=== PATIENT | female | born 1955 | race Two or more races ===

== ENCOUNTER 2018-01-11 11:15 | Emergency (ER) | payer OTHER ==
[~2018-01-11] VITALS: Ht 152.4 cm; Wt 91.6 kg
[2018-01-11] MEDS ORDERED: METFORMIN HCL1000 M1 ORAL (11:43)
[2018-01-11] MEDS ORDERED: LOSARTAN POTASS50 MG ORAL (11:43)
[2018-01-11] MEDS ORDERED: FLUOXETINE HCL10 MG ORAL (11:43)
[2018-01-11] MEDS ORDERED: LIPITOR80 MG ORAL (11:43)
[2018-01-11] MEDS ORDERED: HUMULIN R100 UNIT/1 SUBQ (11:43)
[2018-01-11] MEDS ORDERED: HYDROCHLOROTHIA25 MG ORAL (11:43)
[2018-01-11] MEDS ORDERED: ASPIRIN81 MG ORAL (11:43)
[2018-01-11] MEDS ORDERED: ROSUVASTATIN CA40 MG PO (11:43)
[2018-01-11] MEDS ORDERED: AZITHROMYCIN250 MG ORAL (11:43)
[2018-01-11] MEDS ORDERED: BENZONATATE100 MG ORAL (11:43)
--- NOTE | 2018-01-11 12:05 | Emergency Room Report ---
History of Present Illness General Chief Complaint: Upper Respiratory Illness Source: Patient Present Illness HPI 62 yo female patient presents to ER complaining of cough x2 weeks. Patient reports cough has green, purulent sputum. Reports being seen by primary care last week, given Benzonatate cough medication , denies relief of symptoms. Patient also complains of JOHNSON; reports JOHNSON began after cough symptoms. Reports taking Motrin for JOHNSON with mild relief of symptoms. Denies vision changes, vision loss, hearing loss, ear pain. Patient also reports one episode of vomiting today; denies blood in vomit; reports watery. Reports hx of HTN. Denies chest pain, SOB, fever. Denies abdominal pain, diarrhea. Patient denies loss of appetite. Denies syncope, LOC. Allergies: Coded Allergies: PENICILLINS (Verified Allergy, Unknown, 01/11/18) Patient History Past Medical History: see triage record Last Menstrual Period: Post Reviewed Nursing Documentation: PMH: Agreed, PSxH: Agreed Nursing Documentation-PMH Hx Hypertension: Yes Hx Diabetes: Yes Review of Systems All Other Systems: negative except mentioned in HPI Physical Exam Vital Signs Date Time Temp Pulse Resp B/P (MAP) Pulse Ox O2 Delivery O2 Flow Rate FiO2 01/11/18 11:34 97.7 75 19 153/78 95 Room Air 97.7 Sp02 EP Interpretation: reviewed, normal General Appearance: well appearing, no apparent distress, alert, GCS 15, non- toxic Head: normocephalic, atraumatic Eyes: bilateral eye normal inspection, bilateral eye PERRL, bilateral eye EOMI ENT: hearing grossly normal, normal pharynx, normal voice, TMs + canals normal , uvula midline, moist mucus membranes Neck: normal inspection, full range of motion, no bony tend Respiratory: normal inspection, lungs clear, normal breath sounds, no rhonchi, no respiratory distress, no retraction, no accessory muscle use, no wheezing, speaking full sentences Cardiovascular #1: regular rate, rhythm, no gallop, no murmur, no rub Gastrointestinal: normal bowel sounds, non tender, soft, no mass, non-distended , no guarding, no rebound Genitourinary: no CVA tenderness Musculoskeletal: back normal, digits/nails normal, gait/station normal, normal range of motion, no calf tenderness Neurologic: alert, oriented x3, responsive, 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 Jaimes is my supervising Physician whom patient management has been discussed with. Diagnostic Impression: Primary Impression: Upper respiratory infection Additional Impressions: Vomiting Elevated blood pressure reading ER Course Pt presents to ED c/o cough, JOHNSON, and one episode of vomiting. DDX considered but are not limited to viral URI, pneumonia, strep throat, rhinitis, sinusitis, otitis media, gastritis, migraine, UTI, arrhythmia. VITAL SIGNS patient is afebrile. Slight elevation of blood pressure; patient reports hx of high blood pressure. Ordered medication, EKG, and chest XRay. ED COURSE: Patient provided with Toradol, IV saline, Benadryl. Patient reports feeling "better" following administration of medication. Patient wants to know "how much longer" she will be here and is requesting to be discharged home. Informed patient she will be discharged home following completion and review of UA results. CXR negative for acute disease EKG negative for ST elevations, arrhythmia. UA negative for infection. Patient resting comfortably, in no acute distress, nontoxic appearing, sending text messages on her phone. DISCHARGE: At this time pt is stable for d/c to home. -Rx given for Tylenol/Acetaminophen for fever/pain. -Rx given for Promethazine syrup for cough sx. -Rx provided for Zofran Patient to take medications as instructed Will provide with patient care instructions and any necessary prescriptions. Care plan and follow-up instructions provided. Patient instructed to follow-up with primary care provider in 3 - 5 days for further treatment and referral as needed. Patient questions asked and answered. ER precautions given. Patient instructed to return to ER immediately for any new or worsening of symptoms including but not limited to increasing SOB, persistent fever. Labs Test 01/11/18 12:45 Urine Color Pale yellow Urine Appearance Slightly cloudy Urine pH 6.5 (4.5-8.0) Urine Specific Maury 1.010 (1.005-1.035) Urine Protein 1+ (NEGATIVE) Urine Glucose (UA) 4+ (NEGATIVE) Urine Ketones Negative (NEGATIVE) Urine Occult Blood Negative (NEGATIVE) Urine Nitrite Negative (NEGATIVE) Urine Bilirubin Negative (NEGATIVE) Urine Urobilinogen Normal MG/DL (0.0-1.0) Urine Leukocyte Esterase Negative (NEGATIVE) Urine RBC 0-2 /HPF (0 - 2) Urine WBC 0-2 /HPF (0 - 2) Urine Squamous Epithelial Cells Few /LPF (NONE/OCC) Urine Bacteria Few /HPF (NONE) EKG Diagnostic Results Rate: normal, tachycardiac, bradycardiac Rhythm: NSR ST Segments: no acute changes ASA given to the pt in ED: No PA Scribe Text Fuentes Clinton PA-C Rhythm Strip Diag. Results EP Interpretation: yes Rate: 75 Rhythm: NSR, no PVC's, no ectopy PA Scribe Text Fuentes Clinton PA-C Chest X-Ray Diagnostic Results Chest X-Ray Diagnostic Results : Chest X-Ray Ordered: Yes # of Views/Limited/Complete: 1 View Indication: Other EP Interpretation: Yes PA Xray: Interpretation reviewed, by supervising MD, and agrees with findings. Interpretation: no consolidation, no effusion, no pneumothorax Impression: No acute disease Last Vital Signs Date Time Temp Pulse Resp B/P (MAP) Pulse Ox O2 Delivery O2 Flow Rate FiO2 01/11/18 11:34 97.7 75 19 153/78 95 Room Air 97.7 Disposition: HOME, SELF-CARE Condition: Stable Scripts Acetaminophen* (TYLENOL EXTRA STRENGTH*) 500 Mg Tablet 500 MG ORAL Q8H Y for Prn Headache/Temp > 101, #30 TAB 0 Refills Prov: Joe Clinton 01/11/18 Ondansetron* (ZOFRAN*) 4 Mg Tablet 4 MG ORAL Q6H Y for Nausea & Vomiting for 3 Days, #15 TAB Prov: Joe Clinton 01/11/18 Promethazine Hcl (PROMETHAZINE HCL*) 6.25 Mg/5 Ml Syrup 5 ML ORAL Q8H, #120 ML 0 Refills Prov: Joe Clinton 01/11/18 Patient Instructions: Upper Respiratory Infection, Adult Additional Instructions: Followup with primary care provider in 3 -5 days. Take medications as directed. Patient questions asked and answered. ER precautions given, patient instructed to return to ER immediately for any new or worsening of symptoms. Joe Clinton Jan 11, 2018 12:05
[2018-01-11] MEDS ORDERED: Ketorolac 30mg Inj IM ONE (12:15)
--- NOTE | 2018-01-11 13:04 | Diagnostic Imaging Report ---
Indication: Reason For Exam: PAIN Technique: One view of the chest Comparison: none Findings: No acute infiltrates, effusions, or congestion. Tortuous calcified aorta. Upper limits normal heart size. Upper mediastinum unremarkable. Impression: No acute process.
[2018-01-11] MEDS ORDERED: TYLENOL EXTRA500 MG ORAL (13:10)
[2018-01-11] MEDS ORDERED: ZOFRAN4 M3 ORAL (13:10)
[2018-01-11] MEDS ORDERED: PROMETHAZI6.25 MG/1 ORAL (13:10)
[2018-01-11 13:48] LABS: APPEARANCE,URINE SLIGHTLY CLOUDY; BILIRUBIN, URINE NEGATIVE (NEGATIVE); COLOR,URINE PALE YELLOW; GLUCOSE, URINE (UA) 4+ (NEGATIVE); KETONES,URINE NEGATIVE (NEGATIVE); LEUKOCYTE ESTERASE ,URINE NEGATIVE (NEGATIVE); NITRITE,URINE NEGATIVE (NEGATIVE); PH,URINE 6.5 (4.5-8.0); PROTEIN,URINE 1+ (NEGATIVE); UROBILINOGEN,URINE NORMAL MG/DL (0.0-1.0)
[2018-01-11 14:10] VITALS: BP 153/78
[2018-01-11 14:22] VITALS: BP 153/78
--- NOTE | 2018-01-12 15:10 | Cardiology Report ---
APPROVED REPORT EKG Measurement Heart [id number] Normal sinus rhythm Normal ECG
== END 2018-01-11 14:23 | disposition home or self-care (01) ==
LOC: EMR 12:19
DX: J06.9 Acute upper respiratory infection, unspecified (principal); R11.10 Vomiting, unspecified; I10 Essential (primary) hypertension; E11.9 Type 2 diabetes mellitus without complications; Z88.0 Allergy status to penicillin
CPT/HCPCS: 71045; 81003; 93005; 96372; 99284; J1885

== ENCOUNTER 2018-02-04 22:42 | Emergency (ER) | payer OTHER ==
[~2018-02-04] VITALS: Ht 160 cm; Wt 104.3 kg
[~2018-02-04 22:42] MED LIST: ASPIRIN81 MG ORAL; AZITHROMYCIN250 MG ORAL; BENZONATATE100 MG ORAL; FLUOXETINE HCL10 MG ORAL; HUMULIN R100 UNIT/1 SUBQ; HYDROCHLOROTHIA25 MG ORAL; LIPITOR80 MG ORAL; LOSARTAN POTASS50 MG ORAL; METFORMIN HCL1000 M1 ORAL; PROMETHAZI6.25 MG/1 ORAL; ROSUVASTATIN CA40 MG PO; TYLENOL EXTRA500 MG ORAL; ZOFRAN4 M3 ORAL
[2018-02-04 23:21] LABS: APPEARANCE,URINE SLIGHTLY CLOUDY; BASOPHILS % (AUTO) 1.2 % (0.0-2.0); BILIRUBIN, URINE NEGATIVE (NEGATIVE); COLOR,URINE PALE YELLOW; EOSINOPHILS % (AUTO) 5.1 % (0.0-3.0); GLUCOSE, URINE (UA) 4+ (NEGATIVE); HEMATOCRIT 37.7 % (37.0-47.0); HEMOGLOBIN 11.6 G/DL (12.0-16.0); KETONES,URINE 1+ (NEGATIVE); LEUKOCYTE ESTERASE ,URINE 2+ (NEGATIVE); LYMPHOCYTES % (AUTO) 28.1 % (20.0-45.0); MEAN CORPUSCULAR VOLUME 76 FL (80-99); MONOCYTES % (AUTO) 5.8 % (1.0-10.0); NEUTROPHILS % (AUTO) 59.9 % (45.0-75.0); NITRITE,URINE NEGATIVE (NEGATIVE); PH,URINE 6 (4.5-8.0); PLATELET COUNT 182 K/UL (150-450); PROTEIN,URINE 2+ (NEGATIVE); RED BLOOD COUNT 4.99 M/UL (4.20-5.40); RED CELL DISTRIBUTION WIDTH 15.9 % (11.6-14.8); UROBILINOGEN,URINE NORMAL MG/DL (0.0-1.0); WHITE BLOOD COUNT 11.4 K/UL (4.8-10.8)
[2018-02-04 23:37] LABS: ANION GAP 14 mmol/L (5-15); BLOOD UREA NITROGEN 11 mg/dL (7-18); CALCIUM 8.7 MG/DL (8.5-10.1); CARBON DIOXIDE 25 MMOL/L (21-32); CHLORIDE 105 MMOL/L (98-107); CREATININE 0.8 MG/DL (0.55-1.30); POTASSIUM 3.6 MMOL/L (3.5-5.1); SODIUM 144 MMOL/L (136-145)
[2018-02-05] MEDS ORDERED: cefTRIAXone 1 GM in NS 55 ML IVPB ONE (00:15)
[2018-02-05 00:19] VITALS: BP 150/61
[2018-02-05] MEDS ORDERED: MACROBID100 MG ORAL (00:32)
--- NOTE | 2018-02-05 00:33 | Emergency Room Report ---
History of Present Illness General Chief Complaint: Alcohol Intoxication Source: Family Member, EMS Present Illness HPI Is a 62-year-old female with a history of diabetes. She presents with altered mental status. She was yelling saying that she is in pain. History is otherwise limited because of patient condition. She's been drinking tonight. Her daughter, she's been depressed because her mom 2 months ago. Mom was 95 years old. No suicidal thoughts or homicidal thoughts. Allergies: Coded Allergies: PENICILLINS (Verified Allergy, Unknown, 01/11/18) Patient History Past Medical History: see triage record, old chart reviewed, DM, HTN Past Surgical History: other Pertinent Family History: none Social History: Reports: alcohol use Now: No Immunizations: other Reviewed Nursing Documentation: PMH: Agreed, PSxH: Agreed Nursing Documentation-PMH Past Medical History: No History, Except For Hx Hypertension: Yes Hx Diabetes: Yes Review of Systems Eye: Denies: eye pain, blurred vision ENT: Denies: ear pain, nose congestion, throat swelling Respiratory: Denies: cough, shortness of breath Cardiovascular: Denies: chest pain, palpitations Gastrointestinal: Denies: abdominal pain, diarrhea, nausea, vomiting Musculoskeletal: Denies: back pain, joint pain Skin: Denies: rash Neurological: Denies: headache, numbness Endocrine: Denies: increased thirst, increased urine Hematologic/Lymphatic: Denies: easy bruising All Other Systems: negative except mentioned in HPI Physical Exam Vital Signs Date Time Temp Pulse Resp B/P (MAP) Pulse Ox O2 Delivery O2 Flow Rate FiO2 02/04/18 22:37 98.0 83 20 189/98 98 Room Air 98.1 vitals with high blood pressure Sp02 EP Interpretation: reviewed, normal General Appearance: well appearing, no apparent distress, alert Head: normocephalic, atraumatic Eyes: bilateral eye PERRL, bilateral eye EOMI ENT: hearing grossly normal, normal pharynx Neck: full range of motion, supple, no meningismus Respiratory: chest non-tender, lungs clear, normal breath sounds Cardiovascular #1: regular rate, rhythm, no murmur Gastrointestinal: normal bowel sounds, non tender, no mass, no organomegaly, no bruit, non-distended Musculoskeletal: back normal, normal range of motion Neurologic: alert Psychiatric: depressed affect Skin: warm/dry Medical Decision Making Diagnostic Impression: Primary Impression: Acute alcoholic intoxication Qualified Codes: F10.929 - Alcohol use, unspecified with intoxication, unspecified Additional Impressions: UTI (urinary tract infection) Qualified Codes: N30.00 - Acute cystitis without hematuria Morbid obesity with BMI of 40.0-44.9, adult Hypertension Adjustment disorder with depressed mood ER Course Patient with alcohol intoxication. No evidence of ACS, PE, dissection. Maybe a mild urinary tract infection. We'll go ahead injury. Blood pressure improved. Lab Results Impression labs unremarkable Last Vital Signs Date Time Temp Pulse Resp B/P (MAP) Pulse Ox O2 Delivery O2 Flow Rate FiO2 02/05/18 00:19 97.7 85 14 150/61 97 Room Air 97.7 Status: improved Disposition: HOME, SELF-CARE Condition: Stable Scripts Nitrofurantoin Monohyd/M-Cryst (Nitrofurantoin [place]-Mcr 100 mg) 100 Mg Capsule 100 MG ORAL Q12H, #14 CAP Prov: KALEE RIBEIRO M.D. 02/05/18 Referrals: [facility]ERR[facility] (PCP) Patient Instructions: Alcohol Intoxication, [id number] Additional Instructions: Follow-up with your DrCelestina in 7 days. Return if symptom worsen. KALEE RIBEIRO M.D. Feb 05, 2018 00:33
[2018-02-05 00:55] VITALS: BP 150/61
== END 2018-02-05 00:55 | disposition home or self-care (01) ==
LOC: EDBD 22:42 → EMR 23:20
DX: F10.929 Alcohol use, unspecified with intoxication, unspecified (principal); N30.00 Acute cystitis without hematuria; E66.01 Morbid (severe) obesity due to excess calories; Z68.41 Body mass index [BMI] 40.0-44.9, adult; I10 Essential (primary) hypertension; F43.21 Adjustment disorder with depressed mood; Z88.0 Allergy status to penicillin; E11.9 Type 2 diabetes mellitus without complications
CPT/HCPCS: 36415; 80048; 80329; 81001; 82962; 85025; 96361; 96374; 99284; J0696

== ENCOUNTER 2019-01-24 11:30 | Emergency (ER) | payer OTHER ==
[~2019-01-24] VITALS: Ht 154.9 cm; Wt 87.5 kg
[~2019-01-24 11:30] MED LIST changes: +MACROBID100 MG ORAL
[2019-01-24 11:48] VITALS: BP 108/74
[2019-01-24] MEDS ORDERED: Benzonatate 100mg Perles ORAL ONE (12:15)
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
[2019-01-24] MEDS ORDERED: TYLENOL EXTRA500 MG ORAL (13:13)
[2019-01-24] MEDS ORDERED: CLARITIN-D 121 EAC1 ORAL (13:13)
[2019-01-24] MEDS ORDERED: TESSALON PERLE100 MG ORAL (13:13)
[2019-01-24 13:16] VITALS: BP 112/76
--- NOTE | 2019-01-24 15:23 | Diagnostic Imaging Report ---
Indication: Cough Technique: One view of the chest Comparison: 01/11/2018 Findings: Lungs and pleural spaces are clear. Heart size is normal Impression: No acute process
--- NOTE | 2019-01-24 15:26 | Diagnostic Imaging Report ---
Indications: Pain Technique: Three views of the ] knee Comparison: None Findings: No acute fractures. No dislocations. Joint spaces are preserved. No radiopaque foreign body. Normal mineralization. Impression: No acute process
== END 2019-01-24 13:20 | disposition home or self-care (01) ==
LOC: EMR 12:24
DX: J06.9 Acute upper respiratory infection, unspecified (principal); M25.561 Pain in right knee; I10 Essential (primary) hypertension; E11.9 Type 2 diabetes mellitus without complications; Z88.0 Allergy status to penicillin
CPT/HCPCS: 71045; 99284

== ENCOUNTER 2020-07-25 15:12 | Inpatient (IN) | payer OTHER ==
[~2020-07-25] VITALS: Ht 154.9 cm; Wt 95.3 kg
[~2020-07-25 15:12] MED LIST changes: +CLARITIN-D 121 EAC1 ORAL; +Nitroglycerin 2% oint pkt TOPIC ONE; +TESSALON PERLE100 MG ORAL
--- NOTE | 2020-07-25 17:50 | NUR ---
NURSES NOTE: Received report from LON Gaytan. Pt is A/O x 3-4 and gambian speaking only, but does speak simple serbian. No SOB or acute distress noted. On RA and SATing @ 96%. Vital signs stable. Ambulatory and continent of both bowel and bladder. No pain noted at this time. Admitting orders confirmed with Dr. Dasilva and written out and confirmed with pharmacy.
[2020-07-25] MEDS ORDERED: dilTIAZem HCl 25mg/5ml Inj IV PRN (19:30)
[2020-07-25] MEDS ORDERED: Albuterol/Ipratropium 3ml neb HHN PRN (19:30)
[2020-07-25] MEDS ORDERED: Miralax 17gm pkt ORAL PRN (19:30)
[2020-07-25] MEDS ORDERED: Enalaprilat 2.5mg/2ml Inj IV PRN (19:30)
--- NOTE | 2020-07-25 19:47 | NUR ---
NURSE HAND-OFF REPORT: Important Events on Shift: New Admit medications pending the pharmacy imputting them. Patient Status: Stable and FC Diet: Diabetic and Cardiac Diet Pending Orders: Pending Results/Labs: Pending MD notification: Latest Vital Signs: Temperature , Pulse , B/P /, Respiratory Rate , O2 SAT , , O2 Flow Rate . Vital Sign Comment: EKG Rhythm: Sinus Rhythm Rhythm change?: N MD Notified?: - MD Response: Latest Swenson Fall Score: Fall Risk: Safety Measures: Call light , Bed Alarm , Side Rails , Bed position . Fall Precautions: Report given to Keenan.
[2020-07-25 20:00] VITALS: BP 117/50
[2020-07-25] MEDS ORDERED: Nitroglycerin Subl 0.4mg tab SL PRN (20:00)
[2020-07-25] MEDS ORDERED: Dextrose 50% 25ml Syringe IV PRN (20:00)
--- NOTE | 2020-07-25 20:00 | NUR ---
Received patient from LON Ross. Patient shows no signs of distress or pain at the time. Patient is AO x4. Patient shows no signs of respiratory distress on room air. IV is intact and patent. There are no signs of erythema, infiltration, or bleeding. Patient says she still feels some pain on chest but its a 5/10, less than in ER. Bed is in the lowest position, call light is within reach, side rails up x3. Will continue to monitor.
[2020-07-25] MEDS ORDERED: HydrOXYzine tab 25mg tab ORAL PRN (20:15)
[2020-07-25] MEDS ORDERED: Lotrisone Cream 15gm TOPIC PRN (20:30)
[2020-07-25] MEDS ORDERED: Levemir Flexpen SUBQ SCH (21:00)
[2020-07-25] MEDS: Insulin NovoLOG Flexpen S/S (Mod) SUBQ SCH (22:14)
--- NOTE | 2020-07-25 22:59 | History & Physical ---
History and Physical History & Physicial job# [id number] Craig Dasilva MD Jul 25, 2020 22:59
[2020-07-26] VITALS: BP 110/48
[2020-07-26 00:18] LABS: BASOPHILS % (AUTO) 1.8 % (0.0-2.0); EOSINOPHILS % (AUTO) 6.7 % (0.0-3.0); HEMATOCRIT 37.9 % (37.0-47.0); HEMOGLOBIN 11.6 G/DL (12.0-16.0); LYMPHOCYTES % (AUTO) 23.7 % (20.0-45.0); MEAN CORPUSCULAR VOLUME 75 FL (80-99); MONOCYTES % (AUTO) 5.7 % (1.0-10.0); NEUTROPHILS % (AUTO) 62.1 % (45.0-75.0); PLATELET COUNT 204 K/UL (150-450); RED BLOOD COUNT 5.08 M/UL (4.20-5.40); RED CELL DISTRIBUTION WIDTH 16.8 % (11.6-14.8); WHITE BLOOD COUNT 10.7 K/UL (4.8-10.8)
[2020-07-26 00:32] LABS: ANION GAP 13 mmol/L (5-15); BLOOD UREA NITROGEN 20 mg/dL (7-18); CALCIUM 9.1 MG/DL (8.5-10.1); CARBON DIOXIDE 23 MMOL/L (21-32); CHLORIDE 104 MMOL/L (98-107); SODIUM 140 MMOL/L (136-145)
--- NOTE | 2020-07-26 01:08 | NUR ---
NURSE NOTES: Admission assessment was done by LON Ross and is in the patients chart because system was down.
[2020-07-26 04:00] VITALS: BP 116/50
[2020-07-26] MEDS: Insulin NovoLOG Flexpen S/S (Mod) SUBQ SCH ×2 (06:15→11:49)
[2020-07-26 06:21] LABS: BASOPHILS % (AUTO) 2.6 % (0.0-2.0); EOSINOPHILS % (AUTO) 6.1 % (0.0-3.0); HEMOGLOBIN 11.8 G/DL (12.0-16.0); MEAN CORPUSCULAR VOLUME 76 FL (80-99); NEUTROPHILS % (AUTO) 58.3 % (45.0-75.0); PLATELET COUNT 193 K/UL (150-450); RED BLOOD COUNT 5.26 M/UL (4.20-5.40); RED CELL DISTRIBUTION WIDTH 16.6 % (11.6-14.8)
[2020-07-26 06:49] LABS: CHOLESTEROL 201 MG/DL (< 200); HDL CHOLESTEROL 47 MG/DL (40-60); TRIGLYCERIDES 288 MG/DL (30-150)
--- NOTE | 2020-07-26 07:14 | NUR ---
NURSE HAND-OFF REPORT: Important Events on Shift:[NA] Patient Status: [Full code] Diet: Regular[] Pending Orders: [NA] Pending Results/Labs:[NA] Pending MD notification:[Ask Dr. Dasilva if regular diet is ok or change to diabetic] Latest Vital Signs: Temperature 98.2 , Pulse 82 , B/P 116 /50 , Respiratory Rate 20 , O2 SAT 96 , , O2 Flow Rate . Vital Sign Comment: [NA] EKG Rhythm: Sinus Rhythm Rhythm change?: N MD Notified?: - MD Response: Latest Swenson Fall Score: 35 Fall Risk: Medium Risk Safety Measures: Call light , Bed Alarm , Side Rails , Bed position . Fall Precautions: Report given to [LON Ross].
[2020-07-26 08:00] VITALS: BP 120/42
--- NOTE | 2020-07-26 08:13 | NUR ---
NURSE NOTES: Received report from LON Lund. Pt is A/O x 3-4 and swedish speaking only, but does speak simple vietnamese. No SOB or acute distress noted. On RA and SATing @ 96%. Vital signs stable. Ambulatory and continent of both bowel and bladder. No pain noted at this time. IV site intqactn and patent with saline lock.
[2020-07-26 08:18] LABS: BLOOD UREA NITROGEN 16 mg/dL (7-18); CALCIUM 9.3 MG/DL (8.5-10.1); CARBON DIOXIDE 23 MMOL/L (21-32); CHLORIDE 103 MMOL/L (98-107); CREATININE 0.8 MG/DL (0.55-1.30); POTASSIUM 4.7 MMOL/L (3.5-5.1); SODIUM 138 MMOL/L (136-145)
[2020-07-26] MEDS ORDERED: Aspirin Baby 81mg ORAL SCH ×2 (09:00)
[2020-07-26] MEDS ORDERED: hydroCHLOROthiazide 25mg cap ORAL SCH (09:00)
[2020-07-26] MEDS ORDERED: Losartan 50mg tab ORAL SCH (09:00)
[2020-07-26] MEDS ORDERED: Heparin 5000 units/ml inj SUBQ SCH (10:00)
--- NOTE | 2020-07-26 11:00 | NUR ---
NURSES NOTE Pt refused heparin injection. Notified Dr. Dasilva and stated to continue to try and administer.
--- NOTE | 2020-07-26 11:55 | Consultation ---
History of Present Illness General Date patient seen: Jul 26, 2020 Present Illness HPI 65 year old female with hx of HTN, DM, morbid obesity presented to ER with CC of chest pressure. Because of her risk factors she is admitted to telemetry for further management. Allergies: Coded Allergies: PENICILLINS (Verified Allergy, Unknown, 01/11/18) Medication History Scheduled Aspirin* (Aspirin*), 81 MG ORAL DAILY, (Reported) Atorvastatin (Lipitor), 80 MG ORAL DAILY, (Reported) Benzonatate* (Tessalon Perle*), 100 MG ORAL THREE TIMES A DAY Hydrochlorothiazide* (Hydrochlorothiazide*), 25 MG ORAL DAILY, (Reported) Loratadine/Pseudoephedrine (Claritin-D 12 Hour Tablet), 1 TAB ORAL EVERY 12 HOURS Losartan Potassium* (Losartan Potassium*), 100 MG ORAL DAILY, (Reported) Metformin Hcl* (Metformin Hcl*), 1,000 MG ORAL DAILY, (Reported) Nitrofurantoin Monohyd/M-Cryst (Nitrofurantoin [place]-Mcr 100 mg), 100 MG ORAL Q12H Rosuvastatin Calcium (Rosuvastatin Calcium), 40 MG PO DAILY, (Reported) Scheduled PRN Acetaminophen* (Tylenol Extra Strength*), 500 MG ORAL Q8H PRN for Prn Headache/ Temp > 101 Miscellaneous Medications Insulin Regular, Human (Humulin R), 0 SUBQ, (Reported) Patient History Healthcare decision maker Resuscitation status Advanced Directive on File Past Medical/Surgical History Past Medical/Surgical History: (1) Hx of diabetes mellitus (2) Hx of essential hypertension (3) Morbid obesity Review of Systems All Other Systems: negative except mentioned in HPI Physical Exam General Appearance: WD/WN, no apparent distress Lines, tubes and drains: peripheral, central line HEENT: normocephalic, atraumatic Neck: non-tender, normal alignment Respiratory/Chest: chest wall non-tender, lungs clear Breasts: no masses Cardiovascular/Chest: normal peripheral pulses Abdomen: normal bowel sounds, non tender Genitourinary/Rectal: normal genital exam Extremities: normal range of motion Last 24 Hour Vital Signs Date Time Temp Pulse Resp B/P (MAP) Pulse Ox O2 Delivery O2 Flow Rate FiO2 07/26/20 08:57 Room Air 07/26/20 08:45 76 120/42 07/26/20 08:45 120/42 07/26/20 08:00 96.1 76 18 120/42 (68) 96 07/26/20 08:00 89 07/26/20 04:00 80 07/26/20 04:00 98.2 82 20 116/50 (72) 96 07/26/20 00:00 84 07/26/20 00:00 98.2 84 18 110/48 (68) 95 07/25/20 22:11 86 117/50 07/25/20 20:00 85 07/25/20 20:00 98.1 86 20 117/50 (72) 96 Intake and Output 07/25/20 07/26/20 19:00 07:00 Intake Total 500 ml Balance 500 ml Intake Oral 500 ml # Voids 3 Laboratory Tests Test 07/25/20 13:50 07/25/20 20:40 07/26/20 05:53 Sodium Level 138 MMOL/L (136-145) 140 MMOL/L (136-145) Potassium Level 4.7 MMOL/L (3.5-5.1) 4.0 MMOL/L (3.5-5.1) Chloride Level 103 MMOL/L (98-107) 104 MMOL/L (98-107) Carbon Dioxide Level 23 MMOL/L (21-32) 23 MMOL/L (21-32) Blood Urea Nitrogen 16 mg/dL (7-18) 20 mg/dL (7-18) H Creatinine 0.8 MG/DL (0.55-1.30) 1.0 MG/DL (0.55-1.30) Estimat Glomerular Filtration Rate > 60 mL/min (>60) 55.8 mL/min (>60) Glucose Level 209 MG/DL (74-106) H 216 MG/DL (74-106) H Calcium Level 9.3 MG/DL (8.5-10.1) 9.1 MG/DL (8.5-10.1) Troponin I 0.000 ng/mL (0.000-0.056) 0.000 ng/mL (0.000-0.056) White Blood Count 10.7 K/UL (4.8-10.8) 10.0 K/UL (4.8-10.8) Red Blood Count 5.08 M/UL (4.20-5.40) 5.26 M/UL (4.20-5.40) Hemoglobin 11.6 G/DL (12.0-16.0) L 11.8 G/DL (12.0-16.0) L Hematocrit 37.9 % (37.0-47.0) 40.0 % (37.0-47.0) Mean Corpuscular Volume 75 FL (80-99) L 76 FL (80-99) L Mean Corpuscular Hemoglobin 22.9 PG (27.0-31.0) L 22.4 PG (27.0-31.0) L Mean Corpuscular Hemoglobin Concent 30.7 G/DL (32.0-36.0) L 29.4 G/DL (32.0-36.0) L Red Cell Distribution Width 16.8 % (11.6-14.8) H 16.6 % (11.6-14.8) H Platelet Count 204 K/UL (150-450) 193 K/UL (150-450) Mean Platelet Volume 7.0 FL (6.5-10.1) 7.6 FL (6.5-10.1) Neutrophils (%) (Auto) 62.1 % (45.0-75.0) 58.3 % (45.0-75.0) Lymphocytes (%) (Auto) 23.7 % (20.0-45.0) 30.0 % (20.0-45.0) Monocytes (%) (Auto) 5.7 % (1.0-10.0) 3.0 % (1.0-10.0) Eosinophils (%) (Auto) 6.7 % (0.0-3.0) H 6.1 % (0.0-3.0) H Basophils (%) (Auto) 1.8 % (0.0-2.0) 2.6 % (0.0-2.0) H Anion Gap 13 mmol/L (5-15) Prothrombin Time 11.3 SEC (9.30-11.50) Prothromb Time International Ratio 1.0 (0.9-1.1) Activated Partial Thromboplast Time 21 SEC (23-33) L C-Reactive Protein, Quantitative 2.2 mg/dL (0.00-0.90) H Triglycerides Level 288 MG/DL (30-150) H Cholesterol Level 201 MG/DL (< 200) H LDL Cholesterol 119 mg/dL (<100) H HDL Cholesterol 47 MG/DL (40-60) Cholesterol/HDL Ratio 4.3 (3.3-4.4) Thyroid Stimulating Hormone (TSH) 4.009 uiU/mL (0.358-3.740) Medications Current Medications Medications (Trade) Dose Ordered Sig/Tr Route PRN Reason Start Time Stop Time Status Last Admin Dose Admin Acetaminophen (Tylenol) 650 mg Q4H PRN ORAL T>100.5 07/25/20 19:30 08/24/20 19:29 Albuterol/ Ipratropium (Albuterol/ Ipratropium) 3 ml Q4H PRN HHN Shortness of Breath 07/25/20 19:30 07/30/20 19:29 Aspirin (ASA) 81 mg DAILY ORAL 07/26/20 09:00 09/09/20 08:59 07/26/20 08:44 Betamethasone/ Clotrimazole (Lotrisone) 1 applic DAILYPRN PRN TOPIC Rash 07/25/20 20:30 10/23/20 20:29 Dextrose (Dextrose 50%) 25 ml Q30M PRN IV Hypoglycemia 07/25/20 20:00 08/24/20 19:58 Dextrose (Dextrose 50%) 50 ml Q30M PRN IV hypoglycemia 07/25/20 20:00 10/23/20 19:59 Diltiazem HCl (Cardizem) 10 mg EVERY HOUR PRN IV heart rate more than 120 BPM 07/25/20 19:30 08/24/20 19:29 Enalaprilat (Vasotec) 2.5 mg Q6H PRN IV sbp more than 160 07/25/20 19:30 08/24/20 19:29 Gabapentin (Neurontin) 300 mg HSPRN PRN ORAL neuropathic pain/numbness 07/25/20 20:15 08/24/20 20:14 Heparin Sodium (Porcine) (Heparin 5000 units/ml) 5,000 units EVERY 12 HOURS SUBQ 07/26/20 10:00 09/09/20 09:59 Hydrochlorothiazide (Hydrodiuril) 25 mg DAILY ORAL 07/26/20 09:00 08/25/20 08:59 07/26/20 08:45 Hydroxyzine HCl (Atarax) 25 mg HSPRN PRN ORAL ITCHING 07/25/20 20:15 08/24/20 20:14 Insulin Aspart (NovoLOG) BEFORE MEALS AND HS SUBQ 07/25/20 21:00 10/23/20 20:59 07/26/20 06:15 Insulin Detemir (Levemir) 50 units Q12HR SUBQ 07/25/20 21:00 10/23/20 20:59 UNV Losartan Potassium (Cozaar) 100 mg DAILY ORAL 07/26/20 09:00 08/25/20 08:59 07/26/20 08:45 Metformin HCl (Glucophage) 750 mg BIAC ORAL 07/26/20 16:30 08/25/20 16:29 Metoprolol Tartrate (Lopressor) 25 mg Q12HR ORAL 07/25/20 21:00 10/23/20 20:59 07/26/20 08:45 Mometasone Furoate (Elocon) 1 applic BID TOPIC 07/26/20 09:00 10/24/20 08:59 UNV Nitroglycerin (Ntg) 0.4 mg Q5MIN X 3 DOSES PRN SL Prn Chest Pain 07/25/20 20:00 08/24/20 19:59 Non-Formulary Medication (Non-Formulary Med) 1 ea DAILY ORAL 07/26/20 09:00 08/25/20 08:59 UNV Ondansetron HCl (Zofran) 4 mg Q6H PRN IVP Nausea & Vomiting 07/25/20 19:30 08/24/20 19:29 Polyethylene Glycol (Miralax) 17 gm DAILYPRN PRN ORAL Constipation 07/25/20 19:30 08/24/20 19:29 Temazepam (Restoril) 15 mg HSPRN PRN ORAL Insomnia 07/25/20 21:00 08/01/20 20:59 Assessment/Plan Problem List: (1) ACS (acute coronary syndrome) ICD Codes: I24.9 - Acute ischemic heart disease, unspecified SNOMED: 010680271 (2) Arrhythmia ICD Codes: I49.9 - Cardiac arrhythmia, unspecified SNOMED: 875532844 (3) Bigeminy ICD Codes: I49.8 - Other specified cardiac arrhythmias SNOMED: 20344186 (4) Hx of diabetes mellitus ICD Codes: Z86.39 - Personal history of other endocrine, nutritional and metabolic disease SNOMED: 377058541 (5) Hx of essential hypertension ICD Codes: Z86.79 - Personal history of other diseases of the circulatory system SNOMED: 905885168 (6) Morbid obesity ICD Codes: E66.01 - Morbid (severe) obesity due to excess calories SNOMED: 023588361 Assessment/Plan: serial EKG, troponin, echo cardio to see sliding scale diabetic diet monitor BP symptomatic treatment dvt prophylaxis. Tereza Nagel MD Jul 26, 2020 11:55
[2020-07-26 12:00] VITALS: BP 135/47
--- NOTE | 2020-07-26 15:57 | NUR ---
CASE MANAGEMENT: INITIAL REVIEW 65YR OLD FEMALE FROM HOME CC:CHEST PRESSURE SI:ACS , ARRHYTHMIA BIGEMINY . 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
[2020-07-26] MEDS ORDERED: metFORMIN 500mg tab ORAL SCH (16:30)
--- NOTE | 2020-07-26 16:45 | Diagnostic Imaging Report ---
Indication: Cough Technique: One view of the chest Comparison: 01/24/2019 Findings: Lungs and pleural spaces are clear. Heart size is normal. No significant change Impression: No acute process
--- NOTE | 2020-07-26 16:51 | NUR ---
NURSE NOTES: Dr Dasilva came onto the unit and saw the pt. Pt after speaking with the pt he ordered discharge to home. Which was carried out and discharge packet was given and explained to the patient. Daughter Sophie was notified that her mom was being discharged and she stated she would car pick up driver her mom. IV site was removed and ID band was cut off. Wheeled pt in wheelchair downstairs to private vehicle with all of the belonging and discharge packet.
[2020-07-26] MEDS ORDERED: Levemir Flexpen SUBQ SCH (21:00)
--- NOTE | 2020-07-26 21:48 | Discharge Summary ---
Discharge Summary Hospital Course Date of Admission Jul 25, 2020 at 15:12 Date of Discharge Jul 26, 2020 at 16:10 Admitting Diagnosis HPI Liv Shirley is a 65 year old female who was admitted on Jul 25, 2020 at 15:12 for Acute Coronary Syndrome Hospital Course job # [id number] Discharge Discharge Vital Signs Last Vital Signs Date Time Temp Pulse Resp B/P (MAP) Pulse Ox O2 Delivery O2 Flow Rate FiO2 07/26/20 12:00 85 07/26/20 12:00 97.7 20 135/47 (76) 96 07/26/20 08:57 Room Air Discharge Disposition Patient was discharged to Craig Dasilva MD Jul 26, 2020 21:48
--- NOTE | 2020-07-26 23:30 | History and Physical Report ---
DATE OF ADMISSION: 07/25/2020 CHIEF COMPLAINT: Chest pain. HISTORY OF PRESENT ILLNESS: This is a 65-year-old female with past medical history significant for hypertension, diabetes type 2, diabetic polyneuropathy, history of obesity, who presented to the hospital complaining about chest pain for 6 days. The patient has had the chest pain mostly in the left side, pressure-like, denies any nausea or vomiting, or diaphoresis. The patient had a previous stress test done over a year ago that was negative, and she said that the chest pain does not improve or decrease in intensity with activity. Shortly after initial evaluation in the emergency department, the patient was admitted to the hospital for chest pain, possible acute coronary syndrome. PAST MEDICAL HISTORY AND PAST SURGICAL HISTORY: As above, history of diabetes type 2, hypertension, morbid obesity. The patient has a history of fatty liver, dyslipidemia, and cirrhosis. MEDICATIONS AT HOME: Significant for aspirin, atorvastatin, , hydrochlorothiazide, Claritin-D, losartan, metformin, nitrofurantoin, and . ALLERGIES: Penicillin. SOCIAL HISTORY: Denies any smoking, alcohol, or drugs. FAMILY HISTORY: Mother, history of heart disease, status post CABG x2, diabetes type 2, hypertension, coronary artery disease. Father, unknown. PHYSICAL EXAMINATION: VITAL SIGNS: On admission from the emergency department, temperature 98.1, pulse of 86, respiratory rate 20, blood pressure 117/50. GENERAL: The patient is awake, responsive, no acute distress. HEENT: Pupils are equal and reactive to light. Extraocular movements intact. NECK: Supple. No JVD. LUNGS: Clear. No wheezing or rales. HEART: S1, S2. Regular rhythm. No murmurs, gallops. ABDOMEN: Soft, nondistended, nontender. Positive bowel sounds. Morbidly obese. EXTREMITIES: No cyanosis, clubbing, edema. NEUROLOGIC: Cranial nerves II through XII grossly normal. Motor is 5/5 in all extremities. Gait is intact. RECTAL/GENITOURINARY: Refused and deferred. LABORATORY DATA: On admission from the emergency room, WBC of 10.7, hemoglobin 11, hematocrit 37, platelets are 204. Sodium 138, potassium 4.7, chloride 103, bicarb 23, BUN 16, creatinine 0.8, glucose is 209. First troponin is less than 0.00. PT of 11, INR 1.0, PTT of 21. Chest x-ray, no acute process. ASSESSMENT: 1. Atypical chest pain. 2. Diabetes type 2. 3. Hypertension. 4. Fatty liver. 5. Dyslipidemia. 6. History of liver cirrhosis. PLAN: Admit the patient to monitor unit. We will follow up serial cardiac enzymes and follow up with Dr. Nagel, Pulmonary Critical Care. Monitor laboratory. If the patient's status improves, consider discharge home to follow up as outpatient for a stress test with her primary physician. Craig Dasilva M.D. DR: PRITESH JOB#: [id number] CC:
--- NOTE | 2020-07-27 04:45 | Discharge Summary ---
DATE OF ADMISSION: 07/25/2020 DATE OF DISCHARGE: 07/26/2020 HISTORY AND HOSPITAL COURSE: This is a 65 years old female with past medical history significant for diabetes type 2, hypertension, fatty liver, dyslipidemia, denies any history of coronary disease or prior history of heart attack or stroke, who presents to the hospital complaining about chest pain. It was noted that the patient over a year ago had a stress test that was essentially unremarkable. Serial cardiac enzymes were negative. Throughout the hospital course, the patient was consulted with Dr. Nagel, Pulmonary, Critical Care. Her status gradually improved. The patient was asymptomatic and subsequently discharged the patient home to be followed up with primary physician in order to have further workup including stress test as outpatient. FINAL DIAGNOSES: 1. Atypical chest pain. 2. Diabetes type 2. 3. Hypertension. 4. Dyslipidemia. 5. Fatty liver and liver cirrhosis. PLAN: The patient will be discharged home today. I advised the patient to follow up with the primary doctor in order to further workup including a stress test as outpatient and the patient denies any chest pain and she feels she denies any nausea or vomiting or dizziness. MEDICATIONS ON DISCHARGE: Continue discharge medication list. ACTIVITY: As tolerated. DIET: Diet would be an 1800 ADA cardiac diet. Craig Dasilva M.D. DR: ISAEL JOB#: [id number] CC:
[2020-07-29] MEDS ORDERED: DULAGLUTIDE INJ SCH (11:00)
--- NOTE | 2020-07-31 01:37 | Cardiology Report ---
APPROVED REPORT EXAM: Two-dimensional and M-mode echocardiogram with Doppler and color Doppler. INDICATION Left ventricular function M-Mode DIMENSIONS IVSd1.3 (0.7-1.1cm)Left Atrium (MM)3.9 (1.6-4.0cm) LVDd3.2 (3.5-5.6cm)Aortic Root2.4 (2.0-3.7cm) PWd1.3 (0.7-1.1cm)Aortic Cusp Exc.1.7 (1.5-2.0cm) IVSs1.7 cmEPSS0.6 (>1.0cm) LVDs2.0 (2.5-4.0cm) PWs1.7 cm <Conclusion> Normal left ventricular chamber size, systolic function and wall motion. Left ventricular ejection fraction estimated to be 60 %. Mild left ventricular hypertrophy. No evidence of pericardial effusion. All other cardiac chamber sizes are within normal limits. Focal aortic valve sclerosis with adequate cusp excursion. Thickened mitral valve leaflets with normal excursion. Mitral annulus and aortic root calcification. Pulmonic valve not well visualized. Normal tricuspid valve structure. IVC at normal size and collapsing with respiration. A color flow and spectral Doppler study was performed and revealed: No aortic regurgitation present. Trace to mild mitral regurgitation. Mitral diastolic velocities suggest reduced left ventricular relaxation c/w mild diastolic dysfunction (Grade I). Trace to mild tricuspid regurgitation. Tricuspid systolic velocities suggests peak right ventricular systolic pressure of 35 mmHg, consistent with borderline mild pulmonary hypertension. No pulmonic regurgitation present.
--- NOTE | 2020-08-01 13:13 | Emergency Room Report ---
History of Present Illness General Chief Complaint: Chest Pain Present Illness HPI 65-year-old female past no history of hypertension, hyperlipidemia presents with 6 days of constant chest pain not aggravated with exertion she endorses shortness of breath there was a recent in her family, severity is moderate , constant no dyspnea on exertion no nausea no vomiting no diaphoresis patient presents for evaluation and treatment. Allergies: Coded Allergies: PENICILLINS (Verified Allergy, Unknown, 01/11/18) COVID-19 Screening COVID-19 Screening: Negative COVID-19 Patient History Past Medical History: see triage record Reviewed Nursing Documentation: PMH: Agreed; PSxH: Agreed Nursing Documentation-PMH Hx Hypertension: Yes Hx Diabetes: Yes Review of Systems All Other Systems: negative except mentioned in HPI Physical Exam Vital Signs Label Value Date Time Patient Temperature 98.1 degrees F 07/25/201999 Temperature Source Oral 07/25/201999 Pulse 86 07/25/201999 Location Right Pulse 85 07/25/201999 Respiratory Rate 20 breaths per minute 07/25/201999 Blood Pressure Assessment 117/50 (72) 07/25/201999 Bedside Pulse Oximetry 96 % 07/25/201999 Sp02 EP Interpretation: reviewed, normal General Appearance: well appearing, no apparent distress, alert Head: normocephalic, atraumatic Eyes: bilateral eye PERRL, bilateral eye EOMI ENT: uvula midline, moist mucus membranes Neck: supple, thyroid normal, supple/symm/no masses Respiratory: lungs clear, no respiratory distress, no retraction, no accessory muscle use Cardiovascular #1: normal peripheral pulses, regular rate, rhythm, no edema, no gallop, no murmur Gastrointestinal: non tender, soft, no guarding, no rebound Musculoskeletal: normal inspection Neurologic: alert, oriented x3 Psychiatric: anxious Skin: no rash, warm/dry Medical Decision Making Diagnostic Impression: Primary Impression: Chest pain Qualified Codes: R07.9 - Chest pain, unspecified ER Course Please note this chart was made after downtime resolved. 65-year-old female presents with atypical chest pain differential diagnosis includes ACS, pancreatitis, pneumonia Patient will be admitted for rule out ACS, for troponin was negative Item Value Date Time Sodium Level 138 MMOL/L 07/25/20 1350 Potassium Level 4.7 MMOL/L 07/25/20 1350 Chloride Level 103 MMOL/L 07/25/20 1350 Carbon Dioxide Level 23 MMOL/L 07/25/20 1350 Blood Urea Nitrogen 16 mg/dL 07/25/20 1350 Creatinine 0.8 MG/DL 07/25/20 1350 Estimat Glomerular Filtration Rate > 60 mL/min 07/25/20 1350 Glucose Level 209 MG/DL H 07/25/20 1350 Calcium Level 9.3 MG/DL 07/25/20 1350 Troponin I 0.000 ng/mL 07/25/20 1350 EKG Diagnostic Results EKG Time: 14:01 EP Interpretation: NSR, rate 82, QTc 448, no acute ST elevations, left axis deviation Rhythm Strip Diag. Results Rhythm Strip Time: 14:02 EP Interpretation: yes Rate: 82 Rhythm: NSR, no PVC's, no ectopy Chest X-Ray Diagnostic Results Chest X-Ray Diagnostic Results : Chest X-Ray Ordered: Yes # of Views/Limited/Complete: 1 View Indication: Chest Pain EP Interpretation: Yes Interpretation: no consolidation, no effusion, no pneumothorax, no acute cardiopulmonary disease Impression: No acute disease Electronically Signed by: Quincy Gibbs MD Disposition: ADMITTED INPATIENT Condition: Stable Referrals: NON PHYSICIAN (PCP) Quincy Gibbs MD Aug 01, 2020 13:13
== END 2020-07-26 16:10 | disposition home or self-care (01) | DRG 198 ==
LOC: 2E 15:12
DX: R07.89 Other chest pain (principal); I24.9 Acute ischemic heart disease, unspecified; I10 Essential (primary) hypertension; E66.01 Morbid (severe) obesity due to excess calories; Z68.39 Body mass index [BMI] 39.0-39.9, adult; E11.42 Type 2 diabetes mellitus with diabetic polyneuropathy; Z88.0 Allergy status to penicillin; E78.5 Hyperlipidemia, unspecified; K76.0 Fatty (change of) liver, not elsewhere classified; K74.60 Unspecified cirrhosis of liver; R00.8 Other abnormalities of heart beat
CPT/HCPCS: 36415; 71045; 80048; 80061; 82962; 84443; 84484; 85025; 85610; 85730; 86140; 93306; J1815; S5561

== ENCOUNTER 2020-12-26 13:52 | Emergency (ER) | payer MEDICARE, OTHER ==
[~2020-12-26] VITALS: Ht 154.9 cm; Wt 93.4 kg
[~2020-12-26 13:52] MED LIST changes: -Nitroglycerin 2% oint pkt TOPIC ONE
--- NOTE | 2020-12-26 13:58 | NUR ---
pt. is not in the room
--- NOTE | 2020-12-26 14:10 | NUR ---
ED Nurse Note:BS 282 on arrival
--- NOTE | 2020-12-26 14:52 | Diagnostic Imaging Report ---
Indication: Chest pain Technique: XRAY Chest 1v Comparison: 07/25/2020 Findings: Heart size and mediastinal contours are within normal limits for AP technique and stable compared with prior exam. Atherosclerotic calcifications again noted in the aortic arch. There is symmetric haziness of the bilateral lower lungs which is likely artifactual related to overlying soft tissue/breasts. There is no focal airspace consolidation, pneumothorax or pleural effusion. There are degenerative changes in the spine. Osseous structures demonstrate no acute abnormality. Impression: No radiographic evidence of acute cardiopulmonary disease.
[2020-12-26 15:20] VITALS: BP 135/73
[2020-12-26 15:31] LABS: ANION GAP 9 mmol/L (5-15); BLOOD UREA NITROGEN 15 mg/dL (7-18); CALCIUM 9.3 MG/DL (8.5-10.1); CARBON DIOXIDE 26 MMOL/L (21-32); CHLORIDE 103 MMOL/L (98-107); CREATININE 0.8 MG/DL (0.55-1.30); POTASSIUM 4.3 MMOL/L (3.5-5.1); SODIUM 138 MMOL/L (136-145)
[2020-12-26 15:37] LABS: ALANINE AMINOTRANSFERASE 56 U/L (12-78); ALBUMIN 3.3 G/DL (3.4-5.0); ALBUMIN/GLOBULIN RATIO 0.9 (1.0-2.7); ALKALINE PHOSPHATASE 194 U/L (46-116); ASPARTATE AMINO TRANSFERASE 55 U/L (15-37); BILIRUBIN,TOTAL 0.4 MG/DL (0.2-1.0)
[2020-12-26 15:50] LABS: BASOPHILS % (AUTO) 1.3 % (0.0-2.0); EOSINOPHILS % (AUTO) 4.2 % (0.0-3.0); HEMATOCRIT 39.1 % (37.0-47.0); HEMOGLOBIN 11.5 G/DL (12.0-16.0); MEAN CORPUSCULAR VOLUME 77 FL (80-99); MONOCYTES % (AUTO) 5.9 % (1.0-10.0); NEUTROPHILS % (AUTO) 70.6 % (45.0-75.0); PLATELET COUNT 162 K/UL (150-450); RED BLOOD COUNT 5.07 M/UL (4.20-5.40); RED CELL DISTRIBUTION WIDTH 17.2 % (11.6-14.8); WHITE BLOOD COUNT 8.9 K/UL (4.8-10.8)
--- NOTE | 2020-12-26 18:12 | Emergency Room Report ---
History of Present Illness General Chief Complaint: Abnormal Labs Source: Patient (Jenny Russ) Present Illness HPI 65-year-old female with history of type 2 diabetes and hypertension currently taking medication insulin here complaining of elevated blood sugar. Patient denies any symptoms other than nausea. Reports that she went to get tested for Covid this morning for cataract surgery and she was told that her Accu-Chek was above 300 and told to come to the hospital. Patient denies any chest pain shortness of breath. Denies any abdominal pain, diarrhea constipation. Appears to be stable, will stay vital signs. Blood sugar is 300 upon arrival however came down under 200 after 2 L of fluid were administered. Patient denies any urinary symptoms. Denies any hematuria. Denies any neuropathy. Denies . (Jenny Russ) Allergies: Coded Allergies: PENICILLINS (Verified Allergy, Unknown, 01/11/18) COVID-19 Screening Contact w/high risk pt: No Experienced COVID-19 symptoms?: No COVID-19 Testing performed KITCHEN MECHANIC: No (Jenny Russ) Patient History Past Medical History: see triage record Past Surgical History: none Pertinent Family History: none Now: No Immunizations: UTD Reviewed Nursing Documentation: PMH: Agreed; PSxH: Agreed (Jenny Russ) Nursing Documentation-PMH Past Medical History: No History, Except For Hx Hypertension: Yes Hx Diabetes: Yes (Jenny Russ) Review of Systems All Other Systems: negative except mentioned in HPI (Jenny Russ) Physical Exam Vital Signs Date Time Temp Pulse Resp B/P (MAP) Pulse Ox O2 Delivery O2 Flow Rate FiO2 12/26/20 14:01 98.4 81 17 133/72 (92) 98 Room Air Sp02 EP Interpretation: reviewed, normal General Appearance: no apparent distress, alert, GCS 15, non-toxic Head: normocephalic, atraumatic Eyes: bilateral eye normal inspection, bilateral eye PERRL ENT: hearing grossly normal, normal pharynx, no angioedema, normal voice Neck: full range of motion, supple/symm/no masses Respiratory: chest non-tender, lungs clear, normal breath sounds, no rhonchi, no respiratory distress, no retraction, no accessory muscle use, speaking full sentences Cardiovascular #1: regular rate, rhythm, no edema Cardiovascular #2: 2+ carotid (R), 2+ carotid (L), 2+ radial (R), 2+ radial (L), 2+ dorsalis pedis (R), 2+ dorsalis pedis (L) Gastrointestinal: non tender, soft, no mass, no organomegaly, no peritonitis, no bruit, non-distended Rectal: deferred Genitourinary: no CVA tenderness Musculoskeletal: back normal, no calf tenderness Neurologic: alert, motor strength/tone normal, oriented x3, sensory intact, responsive, speech normal Psychiatric: judgement/insight normal, memory normal, mood/affect normal, no suicidal/homicidal ideation Skin: no rash Lymphatic: no adenopathy (Jenny Russ) Medical Decision Making PA Attestation All diagnoses and treatment plans were reviewed and discussed with my supervising physician Dr. Ceja (Jenny Russ) Diagnostic Impression: Primary Impression: Hyperglycemia ER Course 65-year-old female with history of type 2 diabetes and hypertension currently taking medication insulin here complaining of elevated blood sugar. Patient denies any symptoms other than nausea. Reports that she went to get tested for Covid this morning for cataract surgery and she was told that her Accu-Chek was above 300 and told to come to the hospital. Patient denies any chest pain shortness of breath. Denies any abdominal pain, diarrhea constipation. Appears to be stable, will stay vital signs. Blood sugar is 300 upon arrival however came down under 200 after 2 L of fluid were administered. Patient denies any urinary symptoms. Denies any hematuria. Denies any neuropathy. Denies pre gnancy. Ddx considered but are not limited to: Hyperglycemia, DKA, UTI, pyelonephritis, Vital signs: are WNL, pt. is afebrile H&PE are most consistent with: Hyperglycemia ORDERS: UA, urine cx, CBC, CMP, chest x-ray, troponin, EKG ED INTERVENTIONS: NS bolus, Zofran Patient reports that symptoms have resolved upon discharge did not have any did not want any nausea medication for home. Patient also left without the release of urine results and was told that we will be contacted with antibiotics called into pharmacy if any UTI. DISCHARGE: At this time pt. is stable for d/c to home. Will provide printed patient care instructions, and any necessary prescriptions. Care plan and follow up instructions have been discussed with the patient prior to discharge. Take medication as directed, follow-up with your primary care provider for better management of your blood sugar, at this time your glucose was lower 200 200 after 2 L of fluid, take insulin at home, continue taking your blood pressure and diabetes medication, if worsening symptoms return to the emergency room (Jenny Russ) EKG Diagnostic Results Rate: normal Rhythm: NSR ST Segments: no acute changes Other Impression No acute ST changes ASA given to the pt in ED: No (Jenny Russ) Chest X-Ray Diagnostic Results Chest X-Ray Diagnostic Results : Chest X-Ray Ordered: Yes # of Views/Limited/Complete: 1 View Indication: Other EP Interpretation: Yes PA Xray: Interpretation reviewed, by supervising MD, and agrees with findings. Interpretation: no consolidation, no effusion, no pneumothorax Impression: No acute disease Electronically Signed by: Jenny BUCIO Scribe Text Findings: Heart size and mediastinal contours are within normal limits for AP technique and stable compared with prior exam. Atherosclerotic calcifications again noted in the aortic arch. There is symmetric haziness of the bilateral lower lungs which is likely artifactual related to overlying soft tissue/breasts. There is no focal airspace consolidation, pneumothorax or pleural effusion. There are degenerative changes in the spine. Osseous structures demonstrate no acute abnormality. Impression: No radiographic evidence of acute cardiopulmonary disease. (Jenny Russ) Chest X-Ray Diagnostic Results : Electronically Signed by: Umberto Nguyen documentation of Xray reviewed by me and is Shaheen hall MD (Shaheen Ceja MD) Last Vital Signs Date Time Temp Pulse Resp B/P (MAP) Pulse Ox O2 Delivery O2 Flow Rate FiO2 12/26/20 15:20 98.4 78 17 135/73 98 Room Air (Jenny Russ) Disposition: HOME, SELF-CARE Condition: Stable Referrals: NON PHYSICIAN (PCP) Patient Instructions: Hyperglycemia, [id number] Additional Instructions: Take your diabetes medication as directed, follow-up with primary care provider, if worsening symptoms return to the emergency room Jenny Russ Dec 26, 2020 18:12 Shaheen Ceja MD Dec 30, 2020 18:22
--- NOTE | 2020-12-26 18:47 | NUR ---
ER DISCHARGE NOTE: Patient is cleared to be discharged per ERMD, pt is aox4, on room air, with stable vital signs. pt was given dc instructions, pt was able to verbalize understanding, pt id band and iv site removed without complications. pt is able to ambulate with steady gait. pt took all belongings.
[2020-12-26 18:52] LABS: APPEARANCE,URINE CLEAR; BILIRUBIN, URINE NEGATIVE (NEGATIVE); COLOR,URINE PALE YELLOW; GLUCOSE, URINE (UA) 4+ (NEGATIVE); KETONES,URINE NEGATIVE (NEGATIVE); LEUKOCYTE ESTERASE ,URINE NEGATIVE (NEGATIVE); NITRITE,URINE NEGATIVE (NEGATIVE); PH,URINE 6.5 (4.5-8.0); PROTEIN,URINE NEGATIVE (NEGATIVE); UROBILINOGEN,URINE NORMAL MG/DL (0.0-1.0)
[2020-12-26 18:53] VITALS: BP 139/78
--- NOTE | 2021-01-01 02:01 | Cardiology Report ---
APPROVED REPORT EKG Measurement Heart [id number] <Conclusion> Normal sinus rhythm Left axis deviation Nonspecific ST and T wave abnormality Abnormal ECG
== END 2020-12-26 18:55 | disposition home or self-care (01) ==
LOC: EMR 14:20
DX: E11.65 Type 2 diabetes mellitus with hyperglycemia (principal); I10 Essential (primary) hypertension; Z88.0 Allergy status to penicillin; Z79.4 Long term (current) use of insulin
CPT/HCPCS: 36415; 71045; 80053; 81003; 82962; 84484; 85025; 93005; 96361; 96374; 99284; J2405; J7030

== ENCOUNTER 2021-01-23 12:59 | Outpatient (CLI) | payer MEDICARE, OTHER ==
[~2021-01-23] VITALS: Ht 154.9 cm; Wt 93.4 kg
[2021-01-23 13:25] VITALS: BP 140/63
--- NOTE | 2021-01-23 14:59 | Consultation ---
DATE OF CONSULTATION: 01/23/2021 GASTROENTEROLOGY CONSULTATION CONSULTING PHYSICIAN: Arcadio Martinez MD. CHIEF COMPLAINT: Referral for nausea and vomiting. PAST MEDICAL HISTORY: History Of diabetes times over 20 years, hypertension, hyperlipidemia, fatty liver. PAST SURGICAL HISTORY: Cataract surgery. MEDICATIONS: Please see medication reconciliation list. FAMILY HISTORY: No family history of GI malignancies. SOCIAL HISTORY: The patient occasionally drinks alcohol. Denies any tobacco or IV drug abuse. ALLERGIES: Penicillin. REVIEW OF SYSTEMS: Positive for nausea and vomiting. PHYSICAL EXAMINATION: VITAL SIGNS: Temperature 98, blood pressure 140/63, pulse is 96, respirations 20. HEENT: Normocephalic and atraumatic. Sclerae are anicteric. NECK: Supple. No evidence of obvious lymphadenopathy. CARDIOVASCULAR: Regular rate and rhythm. Plus S1-S2. LUNGS: Clear to auscultation bilaterally. ABDOMEN: Positive bowel sounds. Soft and nontender. No rebound. No guarding. No peritoneal sign. EXTREMITIES: No clubbing, no cyanosis, no edema. ASSESSMENT AND PLAN: This is a 65-year-old female with nausea, vomiting, most probably is due to gastroparesis. According to the patient as she stopped eating fatty food, her nausea and vomiting has significantly improved. According to her, she had an ultrasound showed only fatty liver. No gallstones. According to the patient, she had a colonoscopy in 2018 and she was told that she does not need colonoscopy for another 10 years. So our plan will be to hold off on doing any medication given her symptoms are significantly improving. Explained to the patient side effects of the Reglan and we are going to hold off because of that. The patient was educated and recommended to lose weight and have her blood tightly controlled. The patient was also needs to be scheduled for endoscopy, but at this time, she is going for cataract surgery, we will re-schedule her when she is done. Arcadio Martinez M.D. DR: MANUEL JOB#: [id number] CC:
== END 2021-01-23 14:23 | disposition home or self-care (01) ==
LOC: PAN 12:59
DX: R11.2 Nausea with vomiting, unspecified (principal); E11.9 Type 2 diabetes mellitus without complications; I10 Essential (primary) hypertension; E78.5 Hyperlipidemia, unspecified; Z88.0 Allergy status to penicillin
CPT/HCPCS: 99203